=== PATIENT | female | born 1995 | race Two or more races ===

== ENCOUNTER 2019-12-25 11:32 | Observation (INO) | payer MEDICAID ==
[~2019-12-25] VITALS: Ht 165.1 cm; Wt 137.0 kg
[2019-12-25] MEDS ORDERED: PREN1TAB78 MT (12:55)
[2019-12-25] MEDS ORDERED: OMEG-118 MT (12:55)
[2019-12-25] MEDS ORDERED: FERR325T6 MT (12:55)
== END 2019-12-25 14:05 | disposition home or self-care (01) ==
LOC: 8 EST A/PP 11:32
PROVIDERS: ADMIT Obstetrics & Gynecology; ATTEND Obstetrics & Gynecology
DX: O36.8130 Decreased fetal movements, third trimester, not applicable or unspecified (principal); Z3A.37 37 weeks gestation of pregnancy
CPT/HCPCS: 59025; 76815; 76818; G0378; 99281

== ENCOUNTER 2020-01-06 07:47 | Inpatient (IN) | payer MEDICAID ==
[~2020-01-06] VITALS: Ht 165.1 cm; Wt 137.4 kg
[~2020-01-06 07:47] MED LIST: FERR325T6 MT; OMEG-118 MT; PREN1TAB78 MT
[2020-01-06] MEDS ORDERED: NALOXONE HCL 0.4 MG/ML 1ML VIAL IM PRN (08:30)
[2020-01-06] MEDS ORDERED: METHYLERGONOVINE MALEATE 0.2 MG/ML IM PRN (08:30)
[2020-01-06] MEDS ORDERED: DEXT 5%/LACTATED RINGERS 1,000 ML IV SCH (08:30)
[2020-01-06] MEDS ORDERED: LACTATED RINGERS 1,000 ML IV SCH (08:30)
[2020-01-06] MEDS ORDERED: LIDOCAINE HCL 1% 20ML VIAL (Pyxis) INJ INFIL SCH (08:30)
[2020-01-06] MEDS ORDERED: CARBOPROST TROMETHAMINE 250 MCG/ML AMPUL IM PRN (08:30)
[2020-01-06] MEDS ORDERED: BUTORPHANOL TARTRATE 2 MG/ML VIAL IV PRN (08:30)
[2020-01-06] MEDS ORDERED: DEXT 5%/LR + PITOCIN 20UNITS/L 1,000 ML IV SCH (08:30)
[2020-01-06] MEDS ORDERED: MISOPROSTOL 100MCG TABLET RC SCH (09:00)
[2020-01-06] MEDS ORDERED: PENICILLIN G POTASSIUM 5 MMU in DEXT 5% WATER 100 ML IV SCH (09:00)
[2020-01-06 10:14] LABS: BASOPHILS % 0.3 % (0.0-2.0); HEMATOCRIT. 33.1 % (36.0-48.0); HEMOGLOBIN. 11.5 g/dL (12.0-16.0); LYMPHOCYTES % 25.3 % (20.0-50.0); MEAN CORPUSCULAR HEMOGLOBIN 32.5 pg (28.0-32.0); MEAN CORPUSCULAR VOLUME 93.5 fL (81.0-99.0); MEAN PLATELET VOLUME 8.1 fl (7.4-10.4); MONOCYTES % 5.9 % (2.0-8.0); NEUTROPHILS % 67.5 % (40.0-76.0); PLATELET 161 x1000/uL (130-400); RED BLOOD CELL COUNT 3.54 mill/uL (4.2-5.4); RED CELL DISTRIBUTION WIDTH 13.5 % (11.6-14.6)
[2020-01-06 10:26] LABS: CLARITY URINE CLEAR (CLEAR); COLOR URINE YELLOW (YELLOW); KETONES URINE NEGATIVE (NEGATIVE); LEUKOCYTE ESTERASE URINE NEGATIVE (NEGATIVE); NITRITE URINE NEGATIVE (NEGATIVE); OCCULT BLOOD URINE NEGATIVE (NEGATIVE); PROTEIN URINE NEGATIVE (NEGATIVE); SPECIFIC GRAVITY URINE 1.008 (1.005-1.030); UROBILINOGEN URINE 0.2 E.U./dL (0.2-1.0)
[2020-01-06 10:53] LABS: *AMPHETAMINES SCREEN URINE NEGATIVE (NEGATIVE); *BARBITURATES SCREEN URINE NEGATIVE (NEGATIVE); CANNABINOID URINE SCREEN NEGATIVE (NEGATIVE)
[2020-01-06 10:54] LABS: *BENZODIAZEPINES SCREEN URINE NEGATIVE (NEGATIVE); *COCAINE SCREEN URINE NEGATIVE (NEGATIVE); METHADONE URINE SCREEN NEGATIVE (NEGATIVE); OPIATES URINE SCREEN NEGATIVE (NEGATIVE); PHENCYCLIDINE URINE SCREEN NEGATIVE (NEGATIVE)
[2020-01-06 11:31] LABS: INR 0.9; PARTIAL THROMBOPLASTIN TIME 32.2 sec (23.4-31.0); PROTHROMBIN TIME 9.8 sec (9.6-11.0)
[2020-01-06 11:59] LABS: HEPATITIS B SURFACE ANTIGEN NEGATIVE
[2020-01-06] MEDS: MISOPROSTOL 100MCG TABLET VG PRN ×2 (16:41→20:56)
[2020-01-06] MEDS: PENICILLIN G POTASSIUM 2.5 MMU in DEXTROSE 5% WATER 50 ML IV SCH (20:55)
[2020-01-07] MEDS: MISOPROSTOL 100MCG TABLET VG PRN ×2 (00:45→06:04)
[2020-01-07] MEDS: PENICILLIN G POTASSIUM 2.5 MMU in DEXTROSE 5% WATER 50 ML IV SCH ×2 (00:46→05:01)
[2020-01-07] MEDS ORDERED: BUTORPHANOL TARTRATE 2 MG/ML VIAL IV PRN (10:15)
[2020-01-07] MEDS ORDERED: ROPIVACAINE HCL/PF EPIDURAL 200 ML EPI SCH (12:30)
[2020-01-07] MEDS ORDERED: FENTANYL CITRATE/PF 50MCG/ML 2ML VIAL ONE (12:45)
[2020-01-07] MEDS ORDERED: BUPIVACAINE HCL/PF 0.25% (2.5MG/ML) 10ML ONE (12:45)
[2020-01-07] MEDS ORDERED: OXYTOCIN 10 UNITS/ML 1ML ONE (13:28)
[2020-01-07] MEDS ORDERED: SODIUM CHLORIDE 0.9% 10ML VIAL ONE (13:29)
[2020-01-07] MEDS ORDERED: CEFAZOLIN SODIUM 1000MG/VIAL ONE (13:29)
[2020-01-07] MEDS ORDERED: EPHEDRINE SULFATE 50MG/ML VIAL ONE (13:29)
[2020-01-07] MEDS ORDERED: ONDANSETRON HCL 4MG/2ML INJ IV PRN ×2 (13:30→14:45)
[2020-01-07] MEDS ORDERED: BUTORPHANOL TARTRATE 2 MG/ML VIAL IM PRN (13:30)
[2020-01-07] MEDS ORDERED: DIPHENHYDRAMINE 50MG/ML VIAL IV PRN (13:30)
[2020-01-07] MEDS ORDERED: LABETALOL 5MG/ML SYR 20 MG/4 ML SYRINGE IV PRN (13:30)
[2020-01-07] MEDS ORDERED: KETOROLAC 30MG/ML VIAL IV PRN (13:30)
[2020-01-07] MEDS ORDERED: MEPERIDINE HCL/PF 25MG/ML CPJ IV PRN (13:30)
[2020-01-07] MEDS ORDERED: HYDROMORPHONE HCL/PF 2MG/ML CPJ IV PRN (13:30)
[2020-01-07] MEDS ORDERED: MORPHINE SULFATE/PF 1MG/ML 10ML AMP ONE (13:31)
[2020-01-07] MEDS ORDERED: PHENYLEPHRINE HCL 10 MG/ML 1ML (IV VIAL) IV ONE (14:23)
[2020-01-07] MEDS ORDERED: ONDANSETRON HCL 4MG/2ML INJ ONE (14:23)
[2020-01-07] MEDS ORDERED: DEXT 5%/LR + PITOCIN 20UNITS/L 1,000 ML IV SCH (14:45)
[2020-01-07] MEDS ORDERED: IBUPROFEN 400MG TABLET PO PRN (14:45)
[2020-01-07] MEDS ORDERED: LANOLIN OINT 7GM TUBE TOP PRN (14:45)
[2020-01-07] MEDS ORDERED: RHO(D) IMMUNE GLOBULIN 300 MCG/SYR IM PRN (14:45)
[2020-01-07] MEDS ORDERED: HYDROCODONE/ACETAMINOPHEN 5/325MG TABLET PO PRN (14:45)
[2020-01-07 17:00] VITALS: BP 103/74
[2020-01-07 17:47] VITALS: BP 122/44
[2020-01-07 19:30] VITALS: BP 124/52
[2020-01-07] MEDS: DOCUSATE SODIUM 100MG CAPSULE PO SCH (20:56)
[2020-01-08] VITALS: BP 120/42
[2020-01-08 04:00] VITALS: BP 108/50
[2020-01-08 05:32] LABS: BASOPHILS % 0.4 % (0.0-2.0); EOSINOPHILS % 0.3 % (0.0-5.0); HEMATOCRIT. 25.4 % (36.0-48.0); HEMOGLOBIN. 8.8 g/dL (12.0-16.0); LYMPHOCYTES % 10.3 % (20.0-50.0); MEAN CORPUSCULAR HEMOGLOBIN 32.1 pg (28.0-32.0); MEAN CORPUSCULAR VOLUME 92.6 fL (81.0-99.0); MEAN PLATELET VOLUME 8.3 fl (7.4-10.4); MONOCYTES % 8.9 % (2.0-8.0); NEUTROPHILS % 80.1 % (40.0-76.0); PLATELET 150 x1000/uL (130-400); RED BLOOD CELL COUNT 2.74 mill/uL (4.2-5.4); RED CELL DISTRIBUTION WIDTH 13.5 % (11.6-14.6)
[2020-01-08 08:30] VITALS: BP 112/54
[2020-01-08 16:05] VITALS: BP 119/55
[2020-01-08] MEDS: DOCUSATE SODIUM 100MG CAPSULE PO SCH ×2 (18:32→22:54)
[2020-01-08] MEDS: PRENATAL VIT/FE FUMARATE/FA TABLET PO SCH (18:32)
[2020-01-08] MEDS: ACETAMINOPHEN WITH CODEINE 300/30MG TABLET PO PRN ×2 (18:32→22:55)
[2020-01-08 19:25] VITALS: BP 105/55
[2020-01-09 04:00] VITALS: BP 124/65
[2020-01-09 07:35] VITALS: BP 93/63
[2020-01-09] MEDS: PRENATAL VIT/FE FUMARATE/FA TABLET PO SCH (08:32)
[2020-01-09 20:00] VITALS: BP 110/70
== END 2020-01-09 21:05 | disposition home or self-care (01) | DRG 540 ==
LOC: EDBD 07:47 → OBSVTOIN 07:47 → 8 EST LDRP 07:47 → 8EST 01-07 16:30
PROVIDERS: ADMIT Obstetrics & Gynecology; ATTEND Obstetrics & Gynecology
PROC: 10D00Z1 Extraction of Products of Conception, Low, Open Approach (ICD-10-PCS; principal; 2020-01-07)
PROC: 3E0R3BZ Introduction of Anesthetic Agent into Spinal Canal, Percutaneous Approach (ICD-10-PCS; 2020-01-07)
DX: O69.2XX0 Labor and delivery complicated by other cord entanglement, with compression, not applicable or unspecified (principal); O69.81X0 Labor and delivery complicated by cord around neck, without compression, not applicable or unspecified; O76 Abnormality in fetal heart rate and rhythm complicating labor and delivery; O99.02 Anemia complicating childbirth; D62 Acute posthemorrhagic anemia; O32.1XX0 Maternal care for breech presentation, not applicable or unspecified; Z3A.40 40 weeks gestation of pregnancy; Z37.0 Single live birth; Z79.899 Other long term (current) drug therapy
CPT/HCPCS: 36415; 76805; 76818; 80305; 81003; 85025; 86592; 86703; 86762; 86850; 86900; 87340; 88307; 99281; J0595; J0690; J1885; J2274; J2370; J2405; J2540; J2590; J3010; J3490; J7060; J7120; J7121

== ENCOUNTER 2020-01-13 11:28 | Emergency (ER) | payer MEDICAID ==
[~2020-01-13] VITALS: Ht 165.1 cm; Wt 137.0 kg
[2020-01-13] MEDS ORDERED: ONDANSETRON HCL 4MG/2ML INJ IV STA (12:25)
[2020-01-13] MEDS ORDERED: MORPHINE SULFATE 4 MG/ML CPJ (NOT FOR IM USE) IV STA (12:25)
[2020-01-13] MEDS ORDERED: SODIUM CHLORIDE 0.9% 1,000 ML IV ONE (12:30)
[2020-01-13 13:12] LABS: CHLORIDE 109 mEq/L (98-107)
[2020-01-13 13:14] LABS: BASOPHILS % 0.5 % (0.0-2.0); EOSINOPHILS % 4.3 % (0.0-5.0); HEMATOCRIT. 25.9 % (36.0-48.0); HEMOGLOBIN. 8.9 g/dL (12.0-16.0); LYMPHOCYTES % 29.3 % (20.0-50.0); MEAN CORPUSCULAR HEMOGLOBIN 31.9 pg (28.0-32.0); MEAN CORPUSCULAR VOLUME 92.7 fL (81.0-99.0); MEAN PLATELET VOLUME 6.9 fl (7.4-10.4); MONOCYTES % 7.3 % (2.0-8.0); NEUTROPHILS % 58.6 % (40.0-76.0); PLATELET 245 x1000/uL (130-400); RED CELL DISTRIBUTION WIDTH 13.5 % (11.6-14.6)
[2020-01-13 13:19] LABS: D-DIMER 2.5 mg/L FEU (<0.50); PROTHROMBIN TIME 10.1 sec (9.6-11.0)
[2020-01-13 14:48] LABS: CLARITY URINE CLEAR (CLEAR); COLOR URINE YELLOW (YELLOW); KETONES URINE NEGATIVE (NEGATIVE); LEUKOCYTE ESTERASE URINE 1+ (NEGATIVE); NITRITE URINE NEGATIVE (NEGATIVE); OCCULT BLOOD URINE 3+ (NEGATIVE); PROTEIN URINE TRACE (NEGATIVE); SPECIFIC GRAVITY URINE 1.011 (1.005-1.030); UROBILINOGEN URINE 0.2 E.U./dL (0.2-1.0)
[2020-01-13] MEDS ORDERED: IOHEXOL-350 100 ML BOTTLE ONE ×2 (15:13→16:22)
[2020-01-13 15:50] VITALS: BP 114/64
[2020-01-13] MEDS ORDERED: CEFTRIAXONE 1 G PREMIX 50 ML IV ONE (16:15)
== END 2020-01-13 19:08 | disposition home or self-care (01) ==
LOC: ER 11:33
DX: O26.893 Other specified pregnancy related conditions, third trimester (principal); Z3A.39 39 weeks gestation of pregnancy; Z98.890 Other specified postprocedural states; Z79.899 Other long term (current) drug therapy
CPT/HCPCS: 36415; 71045; 71275; 74177; 80053; 81003; 83690; 85025; 85379; 85610; 85730; 93005; 96361; 96374; 96375; 99285; J2270; J2405; J7030; Q9967